=== PATIENT | male | born 1975 | race Caucasian/White ===

== ENCOUNTER 2016-05-04 13:00 | Inpatient (IN) ==
[2016-05-04 14:58] LABS: Appearance,Urine CLEAR; Bilirubin,Urine NEG (NEG); Color,Urine YELLOW; Glucose,Urine (UA) NEGATIVE (NEG); Leukocyte Esterase,Urine NEG /uL (NEG); Nitrate,Urine NEG (NEG); Protein,Urine NEG (NEG); Specific Gravity,Urine 1.023 (1.000-1.035); Urine Blood NEG mg/dL (<0.03); Urobilinogen,Urine NEG (NEG)
[2016-05-04 16:46] LABS: Blood Urea Nitrogen 12 mg/dl (6-20)
[2016-05-04 16:53] LABS: Basophils # (Auto) 0 K/mcL (0.0-0.3); Basophils % (Auto) 0.6 % (0.0-2.0); Eosinophils # (Auto) 0.2 K/mcL (0.0-0.7); Eosinophils % (Auto) 2.1 % (0.0-7.0); Granulocytes % (Auto) 62.1 % (38.0-78.0); Lymphocytes # (Auto) 2.2 K/mcL (1.5-4.8); Lymphocytes % (Auto) 27.5 % (15.5-49.0); Mean Cell Volume 89.8 fL (80.0-100.0); Mean Corpuscular HGB Conc 33.3 g/dL (31.0-36.0); Mean Corpuscular Hemoglobin 29.9 pg (26.0-34.0); Monocytes # (Auto) 0.6 K/mcL (0.1-0.9); Monocytes % (Auto) 7.7 % (1.0-9.0); Platelet Count 234 K/mcL (140-440); RBC 5.68 M/mcL (4.50-5.90); Red Cell Distribution Width 14.1 % (11.5-14.5)
[2016-05-09] MEDS ORDERED: CELECOXIB 200 MG CAPSULE PO SCH (05:00)
[2016-05-09] MEDS ORDERED: oxyCODONE 10 MG TAB.ER.12H PO SCH (05:00)
[2016-05-09] MEDS ORDERED: PREGABALIN 150 MG CAPSULE PO SCH (05:00)
[2016-05-09] MEDS ORDERED: ceFAZolin 1 GM VIAL IV SCH (05:00)
[2016-05-09] MEDS ORDERED: KETOROLAC 30 MG, ROPIVACAINE HCL/PF 49.5 ML, EPINEPHrine 0.5 MG, 0.9 % SODIUM CHLORIDE ... IJ SCH (06:30)
[2016-05-09] MEDS ORDERED: ROPIVACAINE HCL/PF 30 ML VIAL IJ ONE (07:35)
[2016-05-09] MEDS ORDERED: LIDOCAINE HCL/PF 100 MG/5 ML SYRINGE IV ONE (07:35)
[2016-05-09] MEDS ORDERED: GLYCOPYRROLATE 0.2 MG/ML VIAL IV ONE (07:35)
[2016-05-09] MEDS ORDERED: ONDANSETRON 4 MG/2 ML VIAL IV ONE (07:35)
[2016-05-09] MEDS ORDERED: PROPOFOL 200 MG/20 ML VIAL IV ONE (07:35)
[2016-05-09] MEDS ORDERED: MIDAZOLAM 5 MG/5 ML VIAL IV ONE (07:35)
[2016-05-09] MEDS ORDERED: KETAMINE 100 MG/ML ML IV ONE (07:35)
[2016-05-09] MEDS ORDERED: TRANEXAMIC ACID 1,000 MG/10 ML VIAL IV ONE ×2 (07:35→09:16)
[2016-05-09] MEDS ORDERED: GENTAMICIN SULFATE 800 MG/20 ML VIAL IR ONE (07:55)
[2016-05-09] MEDS ORDERED: BENZOCAINE/MENTHOL 1 LOZENGE PO PRN ×2 (08:46→09:16)
[2016-05-09] MEDS ORDERED: fentaNYL 100 MCG/2 ML VIAL IV PRN (08:46)
[2016-05-09] MEDS ORDERED: PROMETHAZINE 25 MG/ML VIAL IV PRN (08:46)
[2016-05-09] MEDS ORDERED: HYDROmorphone 2 MG/ML SYRINGE IV PRN (08:46)
[2016-05-09] MEDS ORDERED: IPRATROPIUM/ALBUTEROL 3 ML AMPUL.NEB NEB PRN (08:46)
[2016-05-09] MEDS ORDERED: LABETALOL 5 MG/ML ML IV PRN (08:46)
[2016-05-09] MEDS ORDERED: METHOCARBAMOL 1,000 MG/10 ML VIAL IV PRN (08:46)
[2016-05-09] MEDS ORDERED: LACTATED RINGERS 1,000 ML IV SCH (09:00)
--- NOTE | 2016-05-09 09:15 | Brief Operative Note ---
Date of procedure: 05/09/16 Pre-op diagnosis: right knee arthrofibrosis s/p tka Post-op diagnosis: same Procedure: right knee revision of polyethylene liner, extensive debridement with manipulation, lateral release, frozen, cultures Grafts/Implants: Yes Anesthesia: spinal Complications: none Surgeon: Trevon Monroe Watch Supervisor: Eddie Motta Estimated blood loss (cc): 150 Tourniquet Time (Minutes): 62 Specimens Removed/Pathology: other (frozen x 2 culture x 1) Condition: stable Disposition: PACU
[2016-05-09] MEDS ORDERED: METHOCARBAMOL 750 MG TABLET PO PRN (09:16)
[2016-05-09] MEDS ORDERED: BISACODYL 10 MG SUPP.RECT PR PRN (09:16)
[2016-05-09] MEDS ORDERED: FLEETS ADULT ENEMA PR PRN (09:16)
[2016-05-09] MEDS ORDERED: ONDANSETRON 4 MG/2 ML VIAL IV PRN (09:16)
[2016-05-09] MEDS ORDERED: POLYETHYLENE GLYCOL 3350 17 GM PACKET PO PRN (09:16)
[2016-05-09] MEDS ORDERED: MAGNESIUM HYDROXIDE 30 ML ORAL.SUSP PO PRN (09:16)
--- NOTE | 2016-05-09 09:16 | Discharge Summary ---
Ortho Discharge - TKA - Patient Instructions Diet: Regular Diet Activity: activity as tolerated, weight bearing as tolerated Total Knee Protocol: For Total Knee: Start ROM WESLEY with stationary bike or rocking chair. Work on gaining full extension of knee. Posterior dislocation precautions provided. Hip abductor strengthening and gait training instructions provided. Apply Cryocuff as instructed. Dressing Care: May shower in 2 days Patient Education: Revision Total Joint Arthroplasty (DC) Additional Instructions: [facility] [phone] APPOINTMENT: 05/11/16 @ 8: 30am. Take photo ID and insurance cards with you to physical therapy. Wear comfortable clothes to physical therapy. Consider taking pain meds 45 min before physical therapy appointment. - Follow Up Plan Disposition: Home, Self-Care Prognosis: Good Rehab Potential: Good I certify that the patient requires SNF services: No Overall status at discharge: patient is progressing back to baseline
[2016-05-09] MEDS: MEPERIDINE 25 MG/ML SYRINGE IV PRN ×2 (10:00→10:10)
--- NOTE | 2016-05-09 10:31 | Operative Note ---
DATE OF OPERATION: 05/09/2016 PREOPERATIVE DIAGNOSIS: Right knee arthrofibrosis status post total knee arthroplasty. POSTOPERATIVE DIAGNOSIS: Right knee arthrofibrosis status post total knee arthroplasty. PROCEDURE: 1. Right knee revision of one component with liner exchange. 2. Right knee extensive debridement of scar tissue. 3. Right knee manipulation under anesthesia. 4. Right knee open lateral release. 5. Right knee frozen section x2 and cultures x1. SURGEON: Rica Monroe M.D. DORMITORY COUNSELOR SURGEON: Eddie Motta PA-C. ANESTHESIA: Spinal with LMA assist. ESTIMATED BLOOD LOSS: 150 mL. COMPLICATIONS: None noted. SPECIMENS REMOVED: Frozen section x2, cultures x1. DRAINS: Medium Hemovac x 1. TOURNIQUET TIME: 62 minutes at 300 mmHg. IMPLANTS: DePuy Attune tibial insert rotating platform posterior stabilized, size 8, 5 mm AOX. INDICATIONS: The patient has had a previous total knee arthroplasty and has gone and developed arthrofibrosis. We first did a manipulation but he continued to have advancing arthrofibrosis, and then did a knee arthroscopy with a manipulation. After this surgery, about 5 days he started developing scar tissue again and has gone on to develop a severe extension and flexion contracture. He has been worked up for infection and has had a negative Synovasure test, as well as multiple aspirations. He has no metal sensitivities, so we felt that the above surgical intervention would be our best option. After a long discussion about treatment options, the patient elected to proceed with a knee arthroplasty. The risks and benefits were discussed with the patient in detail including, but not limited to, the risks of anesthesia, problems with the heart or lungs related to anesthesia, infection, compromise or injury to the nerves and blood vessels, deep venous thrombosis, pulmonary embolism, pneumonia, continued pain after surgery, worsening pain or symptoms after surgery, swelling, loss of motion, instability, leg length discrepancy, and need for repeat surgery. DESCRIPTION OF PROCEDURE: The patient was seen in the pre-anesthesia waiting room where all questions were answered and the correct side and site were identified and marked. The patient was transferred to the operating room and administered the anesthetic. A time-out was then called. The extremity was prepped and draped, exsanguinated, and the tourniquet was inflated to 300 mmHg. A midline skin incision was then made, and a standard medial parapatellar arthrotomy was performed. We dissected down along the proximal medial tibia with a Ortiz elevator. There was extensive scar tissue in the subcutaneous space which was removed, and in the joint there was approximately an inch of scar tissue underneath the normal extensor mechanism. We removed all of the scar tissue off of the medial gutter and up into the suprapatellar pouch. We then removed all of scar tissue in the infrapatellar fat pad and on the lateral side. I performed an open lateral release. We took tissue from the infrapatellar fat pad, as well as the suprapatellar pouch. We sent this for frozen specimens. They came back with no neutrophils per high-powered field. We also took cultures. We then brought the knee up into full flexion and removed the polyethylene liner. We performed an extensive debridement in the posterior capsule removing all of the scar tissue. I then trialed a 5 mm polyethylene, and I was able to get him out to full extension and full flexion. I thoroughly irrigated using Irrisept and irrigation. We then placed the final polyethylene, the Attune tibial insert rotating platform posterior stabilized size 8, 5 mm AOX. Manipulation both in extension and flexion gave us to full extension and flexion of 140 degrees with good motion and good stability in all planes. We then again irrigated. We closed the medial parapatellar pouch with 0 loop Maxon. We placed a medium Hemovac in the deep space. I let the tourniquet down and all bleeding was controlled with Bovie electrocautery. We then oversewed the medial retinaculum with interrupted [id number] sutures. Subcutaneous layer was closed with 3-0 Vicryl, and the skin was closed with Dermabond. He was dressed with Xeroform, 4 x 4, ABD and an Vick bandage. He was then extubated, transferred to the stretcher and taken to PACU in stable condition. TAVO:kellee Job ID: [id number] Doc ID: [id number] Rica Monroe MD
[2016-05-09] MEDS: 0.9 % SODIUM CHLORIDE 1,000 ML IV SCH ×3 (12:24→23:35)
[2016-05-09] MEDS: HYDROmorphone 2 MG TABLET PO PRN ×2 (12:54→18:40)
[2016-05-09] MEDS: KETOROLAC 30 MG/ML VIAL IV SCH ×3 (12:55→23:43)
[2016-05-09] MEDS: 0.9 % SODIUM CHLORIDE 10 ML SYRINGE IV SCH ×2 (14:18→23:52)
[2016-05-09] MEDS: HYDROmorphone 2 MG/ML SYRINGE IV PRN ×2 (15:27→20:22)
[2016-05-09] MEDS: ceFAZolin 1 GM VIAL IV SCH ×2 (16:56→23:43)
[2016-05-09] MEDS: ASPIRIN 325 MG ENTERIC COATED TABLET PO SCH (20:42)
[2016-05-09] MEDS: DOCUSATE SODIUM 100 MG CAPSULE PO SCH (20:42)
[2016-05-09] MEDS ORDERED: SENNOSIDES 1 TABLET PO SCH (21:00)
[2016-05-10] MEDS: HYDROmorphone 2 MG TABLET PO PRN ×2 (03:16→09:03)
[2016-05-10] MEDS: 0.9 % SODIUM CHLORIDE 10 ML SYRINGE IV SCH (05:42)
[2016-05-10] MEDS: KETOROLAC 30 MG/ML VIAL IV SCH (05:47)
--- NOTE | 2016-05-10 07:41 | Orthopedic Progress Note ---
Subjective Patient information: Note initiated : 05/10/16 at 7:38 am Service Date, if different from initiated Date: [] Patient: Neil Huang 41 y/o M admitted on 05/09/16 for Rt Total knee Arthro Revision w/Polyliner *!skip miner!*. Chief Complaint: [] Principal diagnosis: Right total knee revision Interval history: Doing great this morning. Improved motion after debridement of scar tissue and liner exchange. Ready for DC home. Objective Vital signs: Vital Signs Temp Pulse Resp BP Pulse Ox 05/10/16 07:26 98.3 F 104 H 14 137/67 93 05/10/16 03:32 98.0 F 115 H 14 133/71 94 05/10/16 00:00 98.9 F 83 12 113/66 95 05/09/16 20:00 98.6 F 78 12 119/73 95 05/09/16 13:25 72 129/85 95 05/09/16 12:25 75 128/71 97 05/09/16 11:55 86 127/78 96 05/09/16 11:25 64 117/75 96 05/09/16 11:10 60 131/82 97 05/09/16 10:55 69 135/82 97 05/09/16 10:40 96.3 F L 66 12 132/80 97 05/09/16 10:28 62 12 136/77 97 05/09/16 10:15 86 12 138/82 97 05/09/16 10:00 72 14 117/79 97 05/09/16 09:41 97.5 F L 70 10 L 104/52 96 Intake and Output 05/09/16 05/10/16 05/10/16 21:59 05:59 13:59 Intake Total 1800 / 1800 800 / 800 Output Total 900 / 900 1075 / 1075 600 / 600 Balance 900 / 900 -275 / -275 -600 / -600 Intake: IV 1000 / 1000 Sodium Chloride 0.9% 1, 1000 / 1000 000 ml @ 125 mls/hr IV . Q8H [facility] Rx#:[id number] Oral 800 / 800 800 / 800 Output: Drainage 225 / 225 Hemovac 225 / 225 Void Amount 900 / 900 850 / 850 600 / 600 Other: Meal Dinner Percent of Meal Consumed 100% # Voids 1 Weight 260 lb Intake & Output: Intake & Output 05/09/16 05/10/16 05/10/16 21:59 05:59 13:59 Intake Total 1800 / 1800 800 / 800 Output Total 900 / 900 1075 / 1075 600 / 600 Balance 900 / 900 -275 / -275 -600 / -600 Weight 260 lb Intake: IV 1000 / 1000 Sodium Chloride 0.9% 1, 1000 / 1000 000 ml @ 125 mls/hr IV . Q8H [facility] Rx#:[id number] Oral 800 / 800 800 / 800 Output: Drainage 225 / 225 Hemovac 225 / 225 Void Amount 900 / 900 850 / 850 600 / 600 Other: Meal Dinner Percent of Meal Consumed 100% # Voids 1 Incision: Yes healing Incision clean and dry: Yes Dressing: Yes clean, Yes dry, Yes intact Weight bearing status: as tolerated Neurological exam IM: Yes alert, Yes oriented X3, Yes motor sensory intact, Yes neurovascular intact Extremities exam IM: Yes normal inspection - Periperhal Pulses Peripheral pulses: 2+: dorsalis pedis (L), dorsalis pedis (R), posterior tibialis (L), posterior tibialis (R) - Labs CBC & BMP: 05/10/16 04:30 05/04/16 13:36 Labs: Orthopedic Labs 05/04/16 13:37 PT 13.0 INR 1.0 05/10/16 05/04/16 04:30 13:37 Hgb 12.8 L 17.0 H Hct 38.1 L 51.0 Assessment and Plan (1) S/P revision of total knee PO day 1 s/p righ ttotal knee revision with scar debridement and liner exchange -DC home -PT, mobilize and get motion -DC homewith PO dilaudid, robaxin and indomethacin Status: Acute Qualifiers: Laterality: right Qualified Code(s): Z96.651 - Presence of right artificial knee joint
--- NOTE | 2016-05-10 08:43 | Surgical Pathology Report ---
HISTOLOGY SPECIMEN MICROSCOPIC DIAGNOSIS SPECIMEN A - SOFT TISSUE, RIGHT KNEE INFRAPATELLAR, BIOPSY: -- SYNOVIAL TISSUE WITH FIBROSIS AND MILD CHRONIC INFLAMMATION. SPECIMEN B - SOFT TISSUE, RIGHT KNEE SUPRAPATELLAR, BIOPSY: -- SYNOVIAL TISSUE WITH FIBROSIS AND MILD CHRONIC INFLAMMATION. (RLF:sln) INTRAOPERATIVE CONSULTATION FROZEN SECTION DIAGNOSES (Performed at [facility], [place], [place]) FSA - SOFT TISSUE, RIGHT KNEE INFRAPATELLAR, BIOPSY: -- 0-1 NEUTROPHILS/hpf. FSB - SOFT TISSUE, RIGHT KNEE SUPRAPATELLAR, BIOPSY: -- 0-2 NEUTROPHILS/hpf. (RLF:sln) PROCEDURAL IMPRESSION Post right total knee. GROSS DESCRIPTION Specimen A: Received fresh for intraoperative consultation labeled right knee infrapatellar, is a segment of white-figueroa to pink-figueroa rubbery tissue that measures 3.0 x 2.1 x 0.6 cm. On sectioning, the specimen is variegated white-figueroa to ziegler brown tissue with areas of yellow-figueroa fatty tissue. Frozen section is performed. One cassette for frozen section control. Specimen B: Received fresh for intraoperative consultation labeled right knee suprapatellar, is a segment of variegated white to yellow-figueroa to ziegler brown rubbery tissue measuring 3.1 x 1.5 x 0.8 cm. Sectioning through reveals variegated yellow-figueroa to ziegler brown to white-figueroa soft tissue. Frozen section is performed. One cassette for frozen section control. (RLF:sln) Electronically Signed by: Eduarda Winkler M.D.
[2016-05-10] MEDS: ASPIRIN 325 MG ENTERIC COATED TABLET PO SCH (09:03)
[2016-05-10] MEDS: DOCUSATE SODIUM 100 MG CAPSULE PO SCH (09:03)
[2016-05-10] MEDS: 0.9 % SODIUM CHLORIDE 1,000 ML IV SCH (10:54)
== END 2016-05-10 11:45 | disposition home or self-care (01) | DRG 489 ==
LOC: ICU 05-09 05:10 → MEDSUR 05-09 11:44
PROVIDERS: ADMIT Orthopaedic Surgery Sports Medicine; ATTEND Orthopaedic Surgery Sports Medicine

== ENCOUNTER 2016-06-03 16:33 | Inpatient (IN) ==
[2016-06-03] MEDS ORDERED: HYDROmorphone 2 MG/ML SYRINGE IV PRN (19:31)
[2016-06-03] MEDS ORDERED: METHOCARBAMOL 1,000 MG/10 ML VIAL IV PRN (19:31)
[2016-06-03] MEDS ORDERED: oxyCODONE/APAP 5/325MG TABLET PO PRN (19:31)
[2016-06-03] MEDS ORDERED: VANCOMYCIN 1,000 MG in 0.9 % SODIUM CHLORIDE 250 ML IV ONE (19:31)
[2016-06-03] MEDS ORDERED: HYDROmorphone 2 MG TABLET PO PRN (19:34)
[2016-06-03] MEDS ORDERED: VANCOMYCIN PER PHARMACY IV SCH (19:45)
[2016-06-03 20:31] LABS: Basophils # (Auto) 0 K/mcL (0.0-0.3); Basophils % (Auto) 0.5 % (0.0-2.0); Eosinophils # (Auto) 0.2 K/mcL (0.0-0.7); Eosinophils % (Auto) 2.3 % (0.0-7.0); Granulocytes % (Auto) 62.3 % (38.0-78.0); Lymphocytes % (Auto) 19.6 % (15.5-49.0); Mean Corpuscular HGB Conc 34.7 g/dL (31.0-36.0); Mean Corpuscular Hemoglobin 30.2 pg (26.0-34.0); Monocytes # (Auto) 1.5 K/mcL (0.1-0.9); Monocytes % (Auto) 15.3 % (1.0-9.0); Platelet Count 251 K/mcL (140-440); RBC 5.07 M/mcL (4.50-5.90); Red Cell Distribution Width 13.4 % (11.5-14.5)
[2016-06-03] MEDS: 0.9 % SODIUM CHLORIDE 1,000 ML IV SCH (20:40)
[2016-06-03 20:46] LABS: ALT/SGPT 23 U/l (0-40); Albumin 4.4 gm/dL (3.2-5.2); Albumin/Globulin Ratio 1.8 (1.0-2.3); Alkaline Phosphatase 71 U/L (39-117); Blood Urea Nitrogen 14 mg/dl (6-20)
[2016-06-03] MEDS ORDERED: INDOMETHACIN 25 MG CAPSULE PO SCH (21:00)
[2016-06-03] MEDS ORDERED: VANCOMYCIN 500 MG VIAL ONE (21:06)
[2016-06-03] MEDS: VANCOMYCIN 1,500 MG in 0.9 % SODIUM CHLORIDE 500 ML IV SCH (21:18)
[2016-06-03] MEDS: 0.9 % SODIUM CHLORIDE 10 ML SYRINGE IV SCH (21:44)
[2016-06-03 23:53] LABS: Appearance,Urine HAZY; Bilirubin,Urine NEG (NEG); Color,Urine YELLOW; Glucose,Urine (UA) NEGATIVE (NEG); Leukocyte Esterase,Urine NEG /uL (NEG); Nitrate,Urine NEG (NEG); Protein,Urine NEG (NEG); Specific Gravity,Urine 1.026 (1.000-1.035); Urine Blood NEG mg/dL (<0.03); Urobilinogen,Urine NEG (NEG)
[2016-06-04] MEDS: 0.9 % SODIUM CHLORIDE 10 ML SYRINGE IV SCH ×3 (05:21→21:00)
[2016-06-04] MEDS: 0.9 % SODIUM CHLORIDE 1,000 ML IV SCH ×3 (06:20→18:04)
[2016-06-04] MEDS: VANCOMYCIN 1,500 MG in 0.9 % SODIUM CHLORIDE 500 ML IV SCH ×2 (08:25→20:20)
[2016-06-04] MEDS ORDERED: fentaNYL 100 MCG/2 ML VIAL IV ONE (08:40)
[2016-06-04] MEDS ORDERED: ROPIVACAINE HCL/PF 30 ML VIAL IJ ONE (08:40)
[2016-06-04] MEDS ORDERED: TRANEXAMIC ACID 1,000 MG/10 ML VIAL IV ONE ×3 (08:40→11:26)
[2016-06-04] MEDS ORDERED: LIDOCAINE HCL/PF 100 MG/5 ML SYRINGE IV ONE (08:40)
[2016-06-04] MEDS ORDERED: PROPOFOL 200 MG/20 ML VIAL IV ONE (08:40)
[2016-06-04] MEDS ORDERED: DEXAMETHASONE 10 MG/ML VIAL IV ONE (08:40)
[2016-06-04] MEDS ORDERED: MIDAZOLAM 5 MG/5 ML VIAL IV ONE (08:40)
[2016-06-04] MEDS ORDERED: ONDANSETRON 4 MG/2 ML VIAL IV ONE (08:40)
[2016-06-04] MEDS ORDERED: GENTAMICIN SULFATE 800 MG/20 ML VIAL IR ONE (09:54)
--- NOTE | 2016-06-04 10:22 | Brief Operative Note ---
Date of procedure: 06/04/16 Pre-op diagnosis: right knee infection s/p tka Post-op diagnosis: same Procedure: right total knee arthroplasty revision of poly liner exchange, irrigation and debridement, and antibiotic bead placement Grafts/Implants: Yes Anesthesia: spinal Complications: none Surgeon: Trevon Monroe Handkerchief Cutter: Bryce Knight Estimated blood loss (cc): 100 Specimens Removed/Pathology: none sent Condition: stable Disposition: PACU
[2016-06-04] MEDS ORDERED: FLEETS ADULT ENEMA PR PRN ×2 (10:24→11:47)
[2016-06-04] MEDS ORDERED: POLYETHYLENE GLYCOL 3350 17 GM PACKET PO PRN ×2 (10:24→11:47)
[2016-06-04] MEDS ORDERED: BENZOCAINE/MENTHOL 1 LOZENGE PO PRN ×3 (10:24→11:47)
[2016-06-04] MEDS ORDERED: MAGNESIUM HYDROXIDE 30 ML ORAL.SUSP PO PRN ×2 (10:24→11:47)
[2016-06-04] MEDS ORDERED: HYDROmorphone 2 MG/ML SYRINGE IV PRN ×2 (10:24→10:45)
[2016-06-04] MEDS ORDERED: BISACODYL 10 MG SUPP.RECT PR PRN ×2 (10:24→11:47)
[2016-06-04] MEDS ORDERED: ONDANSETRON 4 MG/2 ML VIAL IV PRN ×3 (10:24→11:47)
[2016-06-04] MEDS ORDERED: VANCOMYCIN 1 GM VIAL TOPICAL SCH ×2 (10:30→11:47)
[2016-06-04] MEDS ORDERED: 0.9 % SODIUM CHLORIDE 1,000 ML IV SCH ×2 (10:30→11:47)
[2016-06-04] MEDS ORDERED: ATROPINE SULFATE 0.4 MG/ML VIAL IV PRN (10:45)
[2016-06-04] MEDS ORDERED: diphenhydrAMINE 50 MG/ML VIAL IV PRN (10:45)
[2016-06-04] MEDS ORDERED: MEPERIDINE 25 MG/ML SYRINGE IV PRN (10:45)
[2016-06-04] MEDS ORDERED: METHOCARBAMOL 1,000 MG/10 ML VIAL IV PRN ×2 (10:45→11:47)
[2016-06-04] MEDS ORDERED: NALOXONE HCL 0.4 MG/ML VIAL IV PRN (10:45)
[2016-06-04] MEDS ORDERED: ePHEDrine 50 MG/ML AMPUL IV PRN (10:45)
[2016-06-04] MEDS ORDERED: IPRATROPIUM/ALBUTEROL 3 ML AMPUL.NEB NEB PRN (10:45)
[2016-06-04] MEDS ORDERED: METOPROLOL TARTRATE 5 MG/5 ML VIAL IV PRN (10:45)
[2016-06-04] MEDS ORDERED: MEPERIDINE 50 MG/ML SYRINGE IM ONE (10:45)
[2016-06-04] MEDS ORDERED: PROMETHAZINE 25 MG/ML VIAL IM ONE (10:45)
[2016-06-04] MEDS ORDERED: LACTATED RINGERS 1,000 ML IV SCH (10:45)
[2016-06-04] MEDS ORDERED: FLUMAZENIL 0.1 MG/ML ML IV PRN (10:45)
[2016-06-04] MEDS ORDERED: MEPERIDINE 50 MG/ML SYRINGE ONE (10:46)
[2016-06-04] MEDS ORDERED: TOBRAMYCIN SULFATE 1.2 GM VIAL TOPICAL ONE (10:51)
[2016-06-04] MEDS: fentaNYL 100 MCG/2 ML VIAL IV PRN ×2 (11:14→11:17)
[2016-06-04] MEDS ORDERED: TRANEXAMIC ACID 1,000 MG/10 ML VIAL IV SCH (11:30)
[2016-06-04] MEDS ORDERED: KETOROLAC 30 MG/ML VIAL IV SCH ×2 (12:00)
[2016-06-04] MEDS: HYDROmorphone 2 MG/ML SYRINGE IV PRN ×3 (12:01→20:56)
[2016-06-04] MEDS: HYDROmorphone 2 MG TABLET PO PRN ×3 (12:15→20:14)
[2016-06-04] MEDS ORDERED: 0.9 % SODIUM CHLORIDE 10 ML SYRINGE IV SCH ×2 (14:00)
[2016-06-04] MEDS ORDERED: 0.9 % SODIUM CHLORIDE 10 ML SYRINGE IV PRN (17:18)
[2016-06-04] MEDS: SENNOSIDES 1 TABLET PO SCH ×2 (17:23→21:00)
[2016-06-04] MEDS: KETOROLAC 30 MG/ML VIAL IV SCH (17:23)
--- NOTE | 2016-06-04 18:46 | XRay Report ---
CLINICAL INFORMATION: Reason for Exam:PICC PLACEMENT COMPARISON: None. FINDINGS: Heart size, mediastinum and pulmonary vessels are normal. Left PICC line tip overlies the brachiocephalic left IJ junction. Lungs are clear. No effusions. IMPRESSION: No acute disease. PICC line tip overlying the left brachycephalic and left IJ jugular vein junction. Nurses instructed to advance tube 10 cm Interpreted and Authenticated by: Trevon Schaefer 06/04/16
[2016-06-04] MEDS: DOCUSATE SODIUM 100 MG CAPSULE PO SCH (20:14)
[2016-06-04] MEDS ORDERED: SENNOSIDES 1 TABLET PO SCH (21:00)
[2016-06-04] MEDS ORDERED: DOCUSATE SODIUM 100 MG CAPSULE PO SCH (21:00)
[2016-06-05] MEDS: HYDROmorphone 2 MG TABLET PO PRN ×4 (00:32→16:12)
[2016-06-05] MEDS: KETOROLAC 30 MG/ML VIAL IV SCH ×4 (00:32→17:59)
[2016-06-05] MEDS: 0.9 % SODIUM CHLORIDE 1,000 ML IV SCH ×3 (00:36→16:14)
[2016-06-05] MEDS: 0.9 % SODIUM CHLORIDE 10 ML SYRINGE IV SCH ×2 (05:05→17:58)
--- NOTE | 2016-06-05 07:44 | History and Physical Report ---
DATE OF ADMISSION: 06/03/2016 DATE OF : 1975 CHIEF COMPLAINT: Right knee pain. HISTORY: Mr. Huang is a pleasant 41-year-old male. He has previously had a right total knee arthroplasty. He has gone on to develop severe arthrofibrosis and about 2 weeks ago, he underwent a liner exchange and irrigation and debridement with removal of scar tissue. He has done well until Sunday when he started to develop some drainage and pain in the knee. The knee was aspirated at that time and today has come back with gram positive cocci. [place] that he did have an infection in the knee so he is admitted at this point and will plan for surgical intervention. PAST MEDICAL HISTORY: None. PAST SURGICAL HISTORY: Right knee surgery times 3. MEDICATIONS: Indocin 25 mg by mouth twice daily. Dilaudid 2 mg by mouth every 4-6 hours as needed for pain. Naproxen 250 mg as needed for pain. Robaxin 750 mg by mouth 3 times per day. ALLERGIES: NO KNIOWN DRUG ALLERGIES. FAMILY HISTORY: Negative. SOCIAL HISTORY: He lives in the [place] with his and family. He denies tobacco and alcohol or illicit drug use. REVIEW OF SYSTEMS: No recent chest pain, shortness of breath. Positive for fever, positive for nausea but no vomiting. No diarrhea or constipation. PHYSICAL EXAMINATION: GENERAL: Resting on the hospital bed in no acute distress, alert and oriented times 3 and cooperative to exam. VITAL SIGNS: Pulse 78, respirations 18, saturations 100 percent on room air. Blood pressure is 160/72, temperature 99.2. HEART: Regular rate and rhythm without murmur or gallop. CHEST: Clear to auscultation in lung pavon bilaterally. ABDOMEN: Soft, nontender, nondistended, normal bowel sounds. EXTREMITIES: The right knee demonstrates moderate effusion. There is no redness or drainage. The range of motion is 0/5/125 degrees. Stable to varus and valgus stress. The calves are soft and nontender. Sensation intact to light touch grossly throughout the extremity, 2+. DP and PT with capillary refill less than 2 seconds. OTHER LABS: Aspiration of the knee from Sunday demonstrates gram positive cocci on the Gram stain. Awaiting cultures. ASSESSMENT: Infected right total knee arthroplasty, status post extensive scar debridement 2 weeks ago. PLAN: It seems to have come on in the last several days. We have talked about 2 different options. One would be irrigation and debridement with a liner exchange and antibiotic bead placement with 6 weeks of __ antibiotics, versus a 2-stage revision. Because it is within the 2-week margin, I felt that the first would be a good option for him, especially because he develops such severe scar tissue and arthrofibrosis. He elected and wishes to proceed. If it looks worse, we may have to proceed with a 2-stage revision, although the plan will be at this point for a right knee irrigation and debridement with liner exchange and antibiotic bead placement. Risk template #1: We talked about the postoperative course in detail. He and his are comfortable with this plan. TAVO: Job ID: [id number] Doc ID: [id number] Rica Monroe MD
--- NOTE | 2016-06-05 07:50 | Orthopedic Progress Note ---
Subjective Patient information: Note initiated : 06/05/16 at 7:48 am Service Date, if different from initiated Date: [] Patient: Neil Huang 41 y/o M admitted on 06/03/16 for Infected Rt. knee harware. Chief Complaint: [] Interval history: doing well. no complaints. pain under control Objective Vital signs: Vital Signs Temp Pulse Resp BP Pulse Ox 06/05/16 07:18 97.6 F 81 14 122/60 06/05/16 04:00 98.1 F 80 16 120/63 95 06/05/16 00:00 97.8 F 88 14 122/65 94 06/04/16 20:00 97.9 F 85 14 119/67 95 06/04/16 14:45 81 16 116/71 97 06/04/16 14:32 97 06/04/16 14:15 73 16 118/71 96 06/04/16 13:45 76 14 115/74 96 06/04/16 13:15 73 16 113/71 96 06/04/16 13:00 121 H 16 121/69 97 06/04/16 12:45 78 16 112/75 98 06/04/16 12:30 68 16 108/67 98 06/04/16 12:15 16 97 06/04/16 11:56 97.6 F 14 127/78 96 06/04/16 11:49 97.6 F 14 127/78 94 06/04/16 11:32 97.2 F L 77 12 130/80 96 06/04/16 11:17 77 12 127/74 99 06/04/16 11:02 74 12 119/65 98 06/04/16 10:47 98.4 F 90 16 118/74 99 Intake and Output 06/04/16 06/05/16 06/05/16 21:59 05:59 13:59 Intake Total 2380 / 2380 800 / 800 Output Total 2125 / 2125 150 / 150 600 / 600 Balance 255 / 255 650 / 650 -600 / -600 Intake: IV 1000 / 1000 Sodium Chloride 0.9% 1, 1000 / 1000 000 ml @ 125 mls/hr IV . Q8H [facility] Rx#:[id number] Oral 1380 / 1380 800 / 800 Output: Drainage 125 / 125 150 / 150 Right Knee 125 / 125 150 / 150 Void Amount 1999 Other 600 / 600 Other: Meal Dinner Percent of Meal Consumed 100% Feeding Ability Independent Weight 253 lb Intake & Output: Intake & Output 06/04/16 06/05/16 06/05/16 21:59 05:59 13:59 Intake Total 2380 / 2380 800 / 800 Output Total 2125 / 2125 150 / 150 600 / 600 Balance 255 / 255 650 / 650 -600 / -600 Weight 253 lb Intake: IV 1000 / 1000 Sodium Chloride 0.9% 1, 1000 / 1000 000 ml @ 125 mls/hr IV . Q8H [facility] Rx#:[id number] Oral 1380 / 1380 800 / 800 Output: Drainage 125 / 125 150 / 150 Right Knee 125 / 125 150 / 150 Void Amount 1999 Other 600 / 600 Other: Meal Dinner Percent of Meal Consumed 100% Feeding Ability Independent Incision: Yes swollen, Yes clean and dry Incision clean and dry: Yes Dressing: Yes clean, Yes dry, Yes intact Weight bearing status: full Neurological exam IM: Yes abnormal gait, Yes alert, Yes oriented X3, Yes motor sensory intact, Yes neurovascular intact Extremities exam IM: Yes Foot pink and warm, Yes neurovascular intact - Labs CBC & BMP: 06/05/16 05:10 06/03/16 19:40 Labs: Orthopedic Labs 06/04/16 04:55 PT 14.4 INR 1.1 06/05/16 06/03/16 05:10 19:40 Hgb 11.2 L 15.3 Hct 33.9 L 44.1 Assessment and Plan (1) S/P revision of total knee pod 1 s/p i and d tka with antibiotic beads wbat pain control dvt prophylaxis - asa Status: Acute Qualifiers:
--- NOTE | 2016-06-05 07:52 | Discharge Summary ---
Ortho Discharge - TKA - Patient Instructions Diet: Regular Diet Activity: activity as tolerated, weight bearing as tolerated Total Knee Protocol: For Total Knee: Start ROM WESLEY with stationary bike or rocking chair. Work on gaining full extension of knee. Posterior dislocation precautions provided. Hip abductor strengthening and gait training instructions provided. Apply Cryocuff as instructed. Dressing Care: May shower in 3 days, Aquacel Ag - leave on for 5 days (send home. will place on in office on sunday) - Problem Maintenance (1) S/P revision of total knee Status: Acute Qualifiers: - Follow Up Plan Disposition: Home, Self-Care Prognosis: Good Rehab Potential: Good I certify that the patient requires SNF services: No Overall status at discharge: patient is progressing back to baseline
--- NOTE | 2016-06-05 09:12 | Operative Note ---
DATE OF OPERATION: 06/04/2016 PREOPERATIVE DIAGNOSIS: Right knee infection status post total knee arthroplasty. POSTOPERATIVE DIAGNOSIS: Right knee infection status post total knee arthroplasty. PROCEDURE PERFORMED: 1. Irrigation and debridement of right total knee arthroplasty infection with revision polyethylene liner exchange. 2. Antibiotic bead placement. SURGEON: Rica Monroe MD. CROZER OPERATOR: Bryce Knight PA-C. SPECIMENS: None. COMPLICATIONS: None. DRAINS: Medium Hemovac x1. ESTIMATED BLOOD LOSS: 100 mL. DISPOSITION: To PACU in stable condition. INDICATION: The patient is a 41-year-old male. He had previously undergone an extensive debridement and scar removal about 2-1/2 weeks ago. He has done well up until Sunday when he started to develop some increased drainage and swelling and pain in the knee. An aspirate has demonstrated a Gram stain of Gram-positive cocci and cultures have not come back yet. We felt that this was an infection and wanted to proceed with surgical intervention. The risks and benefits were discussed with the patient in detail including, but not limited to, the risks of anesthesia, problems with the heart or lungs related to anesthesia, infection, compromise or injury to the nerves and blood vessels, deep venous thrombosis, pulmonary embolism, pneumonia, continued pain after surgery, worsening pain or symptoms after surgery, swelling, loss of motion, re-tear or failure of repair site, and need for repeat surgery. OPERATIVE NOTE: The patient was seen preoperatively where all questions were answered and the correct side and site were identified and marked. He was transferred to the operating room and given a gram of vancomycin and general anesthesia was administered without complication. Preoperative range of motion was 0/2/120 degrees. We made an incision through his old incision and a moderate amount of fluid was removed. We took some of the fibrinous soft tissue and sent this for culture. We removed all of the Vicryl suture and 0 looped Maxon. We revised through his medial parapatellar arthrotomy. He did have previous lateral release which was exposed down to the joint. We removed the polyethylene liner. We thoroughly irrigated and removed any fibrinous tissue seen. The tissue itself was in good condition. We used about 15 L of gentamycin-infused saline under jet lavage. I also used Irrisept. We then placed a new polyethylene liner once it was thoroughly cleaned out which included a DocTreeuy Attune tibial insert rotating platform posterior stabilized size 8, 5 mm AOX. We then used Stimulan Rapid Cure antibiotic beads with tobramycin and gentamycin. These were placed in the joint and around the lateral and medial gutters and in the suprapatellar pouch. We re-revised, repaired the medial parapatellar arthrotomy with 0 looped Maxon. We interrupted with 0 Monocryl to stabilize. We then used 2-0 Monocryl in the subcutaneous tissue and ramos for skin closure. A drain was placed in the deep space. He was then dressed with Xeroform, 4 x 4, ABD and an Vick bandage. He was then extubated, transferred to a stretcher and taken to PACU in stable condition. TAVO:kellee Job ID: [id number] Doc ID: [id number] Rica Monroe MD
[2016-06-05] MEDS: VANCOMYCIN 1,750 MG in 0.9 % SODIUM CHLORIDE 500 ML IV SCH ×2 (09:54→18:00)
[2016-06-05] MEDS: DOCUSATE SODIUM 100 MG CAPSULE PO SCH (10:10)
[2016-06-05] MEDS: HYDROmorphone 2 MG/ML SYRINGE IV PRN (11:36)
[2016-06-05] MEDS: VANCOMYCIN 1,500 MG in 0.9 % SODIUM CHLORIDE 500 ML IV SCH (19:06)
== END 2016-06-05 20:33 | disposition home or self-care (01) | DRG 487 ==
LOC: MEDSUR 17:55
PROVIDERS: ADMIT Orthopaedic Surgery Sports Medicine; ATTEND Orthopaedic Surgery Sports Medicine